=== PATIENT | male | born 1955 | race Two or more races ===

== ENCOUNTER 2021-01-13 02:23 | Inpatient (IN) | payer MEDICARE, OTHER ==
[~2021-01-13] VITALS: Ht 167.6 cm; Wt 66.3 kg
[2021-01-13] MEDS ORDERED: ETOMIDATE 20 MG/10 ML ONE (02:30)
[2021-01-13] MEDS ORDERED: SUCCINYLCHOLINE 20 MG/ML, 10ML ONE (02:30)
--- NOTE | 2021-01-13 02:30 | NUR ---
PT BIB [facility] TO [facility], AND PT WAS BEING PACED FOR BRADYCARDIA ENROUTE FROM PTS LOCATION, ON ARRIVAL, EMS NOTED THAT IT IS A FULL CODE NOW, THEY WALKED IN THE DOOR. CODE ACTIVATED, STAFF TO ROOM, PT RECEIVED, AND PLACED ON GURNEY. PT AIRWAY SECURED, AND BVM USED TO BAG PT UP. PT PLACED ON CR MONITOR, AND REPORT RECEIVED FROM EMS. PER EMS PT RECEIVED 2MG VERSED AND 4MG ZOFRAN PRIOR TO DEPARTURE PT WAS ANXIOUS AND NAUSEATED. 0234 2ND PIV 18G TO RIGHT UPPER ARM STARTED AND BLOOD DRAWN AND SENT TO LAB. 0235 RSI BEGUN. 100 MG SUCC AND 20MG ETOMIDATE GIVEN AND FLUSHED. PT REACHED SEDATION. PT HAD BEEN MOANING ON OCCASION AND ALSO COUGHING RANDOMLY, HAD INCOMPREHENSIBLE WORDS. PT CONTINUES TO BE PACED AND SWITCHED TO ER MONITOR AND PACER, AT 60 mA AND A RATE OF 80, POSITIVE BODY TWITCHING NOTED ON SYNCRONIZED PACING. 0237, PT INTUBATED WITH AN 8.0 CUFFED TUBE X1 ATTEMPT AND TUBE SECURED AND TAPED 25CM AT THE TEETH, CUFF INFLATED AND AIRWAY SECURED, AND POSITIVE ETCO2 COLOR CHANGE, AND PT PLACED ON VENTILATOR BY RT. 0242, PARTS REPRESENTATIVE PERSONNEL WALKING OUT OF ER STOPPED, AND MD EVALUATED WITH ER MD, AND DECISION TO GO TO PARTS REPRESENTATIVE WAS MADE. AT THIS TIME, MD ORDERED 1MG ATROPINE IVP. FLUSHED EASILY. 0244, DOPAMINE GTT PREPARED BY INTERMEDIATE PROJECT MANAGER AND STARTED AT 5MCG/KG/MIN. 0246, PORTABLE CXRY DONE PT BEING PREPARED FOR TRANSPORT TO [facility]S REPRESENTATIVE. 0247 PT TRANSFERRED TO PARTS REPRESENTATIVE STAT, AND REPORT AND CARE GIVEN TO PARTS REPRESENTATIVE MASTER CHEF.
[2021-01-13] MEDS ORDERED: LIDOCAINE 1%, 20ML ONE (02:44)
[2021-01-13] MEDS ORDERED: MIDAZOLAM 1 MG/ML, 5ML ONE ×2 (02:51→11:36)
[2021-01-13 02:58] LABS: NEUTROPHILS % (AUTO) 60 % (42-75)
[2021-01-13 03:03] LABS: BASOPHILS % (AUTO) 0 % (0-1); EOSINOPHILS % (AUTO) 1 % (1-7); LYMPHOCYTES % (AUTO) 33 % (22-44); MEAN CORPUSCULAR HEMOGLOBIN 33.4 pg (27.5-34.5); MEAN CORPUSCULAR HGB CONC 34.8 g/dL (33.2-36.2); MEAN PLATELET VOLUME 9.6 fL (7.4-10.4); MONOCYTES % (AUTO) 6 % (2-9); PLATELET COUNT 285 x10^3/uL (130-400); RED BLOOD COUNT 4.32 x10^6/uL (4.38-5.82); RED CELL DISTRIBUTION WIDTH 12.5 % (9.4-14.8)
[2021-01-13 03:09] LABS: ALANINE AMINOTRANSFERASE 116 U/L (12-78); ALBUMIN 3.1 g/dL (3.4-5.0); ANION GAP 12 mmol/L (5-15); CALCIUM 8.2 mg/dL (8.5-10.1); CHLORIDE 104 mmol/L (98-107); CREATININE 1.25 mg/dL (0.7-1.3)
[2021-01-13 03:14] LABS: ALKALINE PHOSPHATASE 69 U/L (45-117); BILIRUBIN,TOTAL 0.7 mg/dL (0.2-1.0); TOTAL PROTEIN 6.3 g/dL (6.4-8.2); TROPONIN I 0.055 ng/mL (0.000-0.045)
[2021-01-13] MEDS ORDERED: VECURONIUM 10 MG ONE (03:27)
[2021-01-13] MEDS ORDERED: SUCCINYLCHOLINE 20 MG/ML, 10ML IVPush ONE (03:30)
[2021-01-13] MEDS ORDERED: ETOMIDATE 20 MG/10 ML IVPush ONE (03:30)
[2021-01-13] MEDS ORDERED: DOPAMINE/D5W PMX 400 MG/250 ML ONE (03:36)
[2021-01-13] MEDS ORDERED: ATROPINE SYRINGE 0.1 MG/ML, 10ML ONE (03:36)
[2021-01-13] MEDS ORDERED: PROPAFENONE 150 MG TABLET ONE (03:38)
[2021-01-13] MEDS ORDERED: PROPOFOL 100 ML IV ONE (03:39)
[2021-01-13 03:59] LABS: FREE T4 (FREE THYROXINE) 1.4 ng/dL (0.76-1.46)
[2021-01-13] MEDS ORDERED: CYCLOBENZAPRINE 10 MG TABLET PO PRN (04:30)
[2021-01-13] MEDS ORDERED: ACETAMINOPHEN 325 MG TABLET PO PRN (04:30)
[2021-01-13] MEDS ORDERED: SENNA/DOCUSATE TABLET NG PRN (04:30)
[2021-01-13] MEDS ORDERED: ZOLPIDEM 5MG TABLET PO PRN (04:30)
[2021-01-13] MEDS ORDERED: HYDROcodone/APAP 5/325 TABLET PO PRN (04:30)
[2021-01-13] MEDS ORDERED: FENTANYL PF 100 MCG/2ML IVPush PRN (04:30)
[2021-01-13] MEDS ORDERED: GUAIFENESIN/DM 200-20MG, 10ML UDC PO PRN (04:30)
[2021-01-13] MEDS ORDERED: LIDOCAINE-MPF 1%, 2ML ENDO PRN (04:30)
[2021-01-13] MEDS ORDERED: hydrALAzine 20 MG/ML, 1ML IVPush PRN (04:30)
[2021-01-13] MEDS ORDERED: LACTULOSE 20 GM/30 ML UDC NG PRN (04:30)
[2021-01-13] MEDS ORDERED: PROPOFOL 100 ML IV PRN (04:30)
[2021-01-13] MEDS ORDERED: morphine SULFATE 10 MG/ML, 1ML IVPush PRN (04:30)
[2021-01-13] MEDS ORDERED: BISACODYL 10 MG SUPP PR PRN (04:30)
[2021-01-13] MEDS ORDERED: SENNA 176 MG/5 ML ORAL SOL NG PRN (04:30)
[2021-01-13] MEDS ORDERED: PHARMACY MAY ADJ FOR RENAL FX MC SCH (04:30)
[2021-01-13] MEDS ORDERED: ONDANSETRON 2MG/ML, 2ML IVPush PRN (04:30)
[2021-01-13] MEDS ORDERED: LACTATED RINGERS 1,000 ML IV SCH (04:30)
[2021-01-13] MEDS ORDERED: ONDANSETRON 2MG/ML, 2ML IV PRN (04:30)
[2021-01-13] MEDS ORDERED: DOCUSATE 100 MG CAPSULE PO PRN (04:30)
[2021-01-13] MEDS: DOPAMINE/D5W PMX 250 ML IV PRN ×3 (05:08→18:09)
[2021-01-13 05:15] VITALS: BP 109/63
[2021-01-13] MEDS: INSULIN REGULAR 100 UNITS/ML, 3ML VIAL SQ-INSULIN SCH ×4 (05:46→21:00)
[2021-01-13] MEDS ORDERED: INSULIN GLARGINE 100 UNITS/ML, PEN SQ-INSULIN SCH ×2 (07:30→19:30)
[2021-01-13] MEDS: FAMOTIDINE 20 MG/2 ML IVPush SCH ×2 (07:46→21:01)
[2021-01-13] MEDS: SODIUM CHLORIDE FLUSH 10ML SYR IVF SCH ×2 (08:15→21:01)
[2021-01-13] MEDS ORDERED: SODIUM CHLORIDE 0.9%, 500ML IVBOLUS ONE (10:00)
[2021-01-13] MEDS ORDERED: TICAGRELOR 90 MG TABLET ONE (11:36)
[2021-01-13] MEDS ORDERED: FENTANYL PF 100 MCG/2ML ONE (11:36)
[2021-01-13] MEDS ORDERED: LIDOCAINE 2%, 20ML ONE (11:37)
[2021-01-13] MEDS ORDERED: BIVALIRUDIN 250 MG ONE (11:37)
[2021-01-13] MEDS ORDERED: HEPARIN 1,000 UNITS/ML, 10ML ONE ×2 (11:37→11:48)
[2021-01-13] MEDS ORDERED: VERAPAMIL 2.5 MG/ML, 2ML ONE (11:37)
[2021-01-13] MEDS ORDERED: CLOPIDOGREL 300 MG TABLET ONE (13:06)
[2021-01-13] MEDS: SODIUM CHLORIDE 0.9% 2,000 ML IV SCH (14:04)
[2021-01-13] MEDS: ATORVASTATIN 40 MG TABLET PO SCH (21:01)
[2021-01-13] MEDS ORDERED: TRAZODONE 50MG TABLET PO ONE (21:30)
[2021-01-13] MEDS ORDERED: PLEASE ENTER ALLERGIES MC SCH (22:00)
[2021-01-14] MEDS: INSULIN REGULAR 100 UNITS/ML, 3ML VIAL SQ-INSULIN SCH ×4 (03:27→20:07)
[2021-01-14] MEDS ORDERED: PHENYLEPHRINE 10 MG/ML ONE (04:16)
[2021-01-14 04:31] LABS: BASOPHILS % (AUTO) 0 % (0-1); EOSINOPHILS % (AUTO) 0 % (1-7); LYMPHOCYTES % (AUTO) 10 % (22-44); MEAN CORPUSCULAR HEMOGLOBIN 33.3 pg (27.5-34.5); MEAN CORPUSCULAR HGB CONC 35.2 g/dL (33.2-36.2); MEAN PLATELET VOLUME 8.9 fL (7.4-10.4); MONOCYTES % (AUTO) 8 % (2-9); NEUTROPHILS % (AUTO) 81 % (42-75); PLATELET COUNT 200 x10^3/uL (130-400); RED CELL DISTRIBUTION WIDTH 12.5 % (9.4-14.8)
[2021-01-14 04:39] LABS: ANION GAP 6 mmol/L (5-15); CALCIUM 8.3 mg/dL (8.5-10.1); CHLORIDE 111 mmol/L (98-107); CHOLESTEROL, TOTAL 124 mg/dL (140-239); CREATININE 0.64 mg/dL (0.7-1.3)
[2021-01-14 05:03] LABS: CHOL/HDL RATIO 3.9; HDL CHOL % 26 % (26-37); HDL CHOLESTEROL (DIRECT) 32 mg/dL (40-60); LDL CHOLESTEROL,CALCULATED 71 mg/dL (54-169); LDL/HDL RATIO 2.2 (0.5-3.0); TRIGLYCERIDES 104 mg/dL (50-200); VLDL CHOLESTEROL 21 mg/dL (0-25)
[2021-01-14] MEDS: SODIUM CHLORIDE 0.9% 2,000 ML IV SCH (05:57)
[2021-01-14] MEDS ORDERED: POTASSIUM CHLORIDE 20 MEQ TAB.ER.PRT PO ONE (07:00)
[2021-01-14] MEDS: CLOPIDOGREL 75 MG TABLET PO SCH (07:48)
[2021-01-14] MEDS: FAMOTIDINE 20 MG/2 ML IVPush SCH ×2 (07:48→20:06)
[2021-01-14] MEDS: SODIUM CHLORIDE FLUSH 10ML SYR IVF SCH ×2 (07:49→20:06)
[2021-01-14] MEDS: ASPIRIN 81 MG TABLET CHEW PO SCH (07:49)
[2021-01-14] MEDS: INSULIN GLARGINE 100 UNITS/ML, PEN SQ-INSULIN SCH ×2 (07:53→20:04)
[2021-01-14] MEDS: DOPAMINE/D5W PMX 250 ML IV PRN (12:03)
[2021-01-14] MEDS ORDERED: SODIUM CHLORIDE 0.9%, 500ML IVBOLUS ONE (13:30)
[2021-01-14] MEDS: ATORVASTATIN 40 MG TABLET PO SCH (20:06)
[2021-01-15] MEDS: INSULIN REGULAR 100 UNITS/ML, 3ML VIAL SQ-INSULIN SCH ×3 (03:29→15:00)
[2021-01-15 04:14] LABS: BASOPHILS % (AUTO) 1 % (0-1); EOSINOPHILS % (AUTO) 1 % (1-7); LYMPHOCYTES % (AUTO) 17 % (22-44); MEAN CORPUSCULAR HGB CONC 34.4 g/dL (33.2-36.2); MEAN PLATELET VOLUME 9.2 fL (7.4-10.4); MONOCYTES % (AUTO) 8 % (2-9); NEUTROPHILS % (AUTO) 74 % (42-75); PLATELET COUNT 190 x10^3/uL (130-400); RED BLOOD COUNT 3.67 x10^6/uL (4.38-5.82); RED CELL DISTRIBUTION WIDTH 12.3 % (9.4-14.8)
[2021-01-15 04:22] LABS: ANION GAP 6 mmol/L (5-15); CALCIUM 8.5 mg/dL (8.5-10.1); CHLORIDE 109 mmol/L (98-107); CREATININE 0.58 mg/dL (0.7-1.3)
[2021-01-15] MEDS: ASPIRIN 81 MG TABLET CHEW PO SCH (07:56)
[2021-01-15] MEDS: CLOPIDOGREL 75 MG TABLET PO SCH (07:56)
[2021-01-15] MEDS: INSULIN GLARGINE 100 UNITS/ML, PEN SQ-INSULIN SCH (07:57)
[2021-01-15] MEDS: SODIUM CHLORIDE FLUSH 10ML SYR IVF SCH (07:57)
[2021-01-15] MEDS: MIDODRINE 5 MG TABLET PO SCH ×2 (10:55→15:40)
[2021-01-15] MEDS: DOPAMINE/D5W PMX 250 ML IV PRN (11:28)
[2021-01-18] MEDS ORDERED: INSU100I11 SQ-INSULIN (15:52)
[2021-01-18] MEDS ORDERED: ASPI-963 PO (15:52)
[2021-01-18] MEDS ORDERED: INSU100I13 SQ-INSULIN (15:52)
[2021-01-18] MEDS ORDERED: ATOR40TA78 PO (15:52)
[2021-01-18] MEDS ORDERED: CLOP75TA PO (15:52)
[2021-01-18] MEDS ORDERED: GLUCOMETER (16:49)
[2021-01-18] MEDS ORDERED: [UNRECOGNIZED DRUG - SUPPLY] (16:49)
[2021-01-18] MEDS ORDERED: GLUCOSE TEST STRIPS (16:49)
[2021-01-18] MEDS ORDERED: INSULIN PEN NEEDLES (16:49)
[2021-01-18] MEDS ORDERED: LANCETS (16:49)
== END 2021-01-15 16:00 | disposition left against medical advice (07) | DRG 246 ==
LOC: EDBD 02:23 → ED 02:35 → EDIP 03:00 → CCU 03:21
PROVIDERS: ADMIT Internal Medicine; ATTEND Internal Medicine
PROC: 027034Z Dilation of Coronary Artery, One Artery with Drug-eluting Intraluminal Device, Percutaneous Approach (ICD-10-PCS; principal; 2021-01-13)
PROC: 4A023N7 Measurement of Cardiac Sampling and Pressure, Left Heart, Percutaneous Approach (ICD-10-PCS; 2021-01-13)
PROC: B2111ZZ Fluoroscopy of Multiple Coronary Arteries using Low Osmolar Contrast (ICD-10-PCS; 2021-01-13)
PROC: 5A2204Z Restoration of Cardiac Rhythm, Single (ICD-10-PCS; 2021-01-13)
PROC: 5A1935Z Respiratory Ventilation, Less than 24 Consecutive Hours (ICD-10-PCS; 2021-01-13)
PROC: 0BH17EZ Insertion of Endotracheal Airway into Trachea, Via Natural or Artificial Opening (ICD-10-PCS; 2021-01-13)
DX: I21.19 ST elevation (STEMI) myocardial infarction involving other coronary artery of inferior wall (principal); J96.01 Acute respiratory failure with hypoxia; I63.9 Cerebral infarction, unspecified; R57.0 Cardiogenic shock; I44.2 Atrioventricular block, complete; G93.40 Encephalopathy, unspecified; E11.65 Type 2 diabetes mellitus with hyperglycemia; F17.210 Nicotine dependence, cigarettes, uncomplicated; R29.702 NIHSS score 2; R00.1 Bradycardia, unspecified; D72.829 Elevated white blood cell count, unspecified; R74.01 Elevation of levels of liver transaminase levels; I25.10 Atherosclerotic heart disease of native coronary artery without angina pectoris; Z53.29 Procedure and treatment not carried out because of patient's decision for other reasons; Z79.899 Other long term (current) drug therapy
CPT/HCPCS: 31500; 33210; 36600; 92953; 92973; 96374; 99291; J3490; 70450; 71045; 72125; 80047; 80048; 80053; 80061; 82533; 82803; 82962; 83036; 83690; 83735; 84100; 84439; 84443; 84478; 84484; 85025; 85347; 87070; 87077; 87081; 87186; 87205; 92950; 93005; 93306; 93356; 94002; 94003; 99156; 99157; C1769; C1894; G0378; J0461; J0583; J1265; J1644; J1815; J2250; J2704; J3010; 92523-GN; C1725; C1757; C1874; J0330; J2370; J7030; J7040; J7120; Q9967

== ENCOUNTER 2021-03-18 11:22 | Outpatient (CLI) | payer MEDICARE ==
[~2021-03-18 11:22] MED LIST: ASPI-963 PO; ATOR40TA78 PO; CLOP75TA PO; GLUCOMETER; GLUCOSE TEST STRIPS; INSU100I11 SQ-INSULIN; INSU100I13 SQ-INSULIN; INSULIN PEN NEEDLES; LANCETS; [UNRECOGNIZED DRUG - SUPPLY]
== END 2021-03-18 23:59 | disposition home or self-care (01) ==
LOC: STAR 11:22
PROVIDERS: ATTEND Thoracic Surgery (Cardiothoracic Vascular Surgery)
DX: Z20.822 Contact with and (suspected) exposure to COVID-19 (principal)
CPT/HCPCS: U0003; U0005

== ENCOUNTER 2021-03-20 07:30 | Inpatient (IN) | payer MEDICARE ==
[~2021-03-20] VITALS: Ht 167.6 cm; Wt 70.2 kg
[2021-03-21] MEDS ORDERED: GLIP5TAB10 PO (12:58)
[2021-03-21] MEDS ORDERED: METF500T17 PO (12:58)
[2021-03-21] MEDS ORDERED: ATOR40TA78 PO (12:58)
[2021-03-21] MEDS ORDERED: CLOP75TA PO (12:58)
[2021-03-21 13:29] LABS: MICROSCOPIC NOT IND
[2021-03-21 13:33] LABS: BASOPHILS % (AUTO) 1 % (0-1); EOSINOPHILS % (AUTO) 2 % (1-7); LYMPHOCYTES % (AUTO) 25 % (22-44); MEAN CORPUSCULAR HEMOGLOBIN 33.2 pg (27.5-34.5); MEAN CORPUSCULAR HGB CONC 34.7 g/dL (33.2-36.2); MEAN PLATELET VOLUME 8.4 fL (7.4-10.4); MONOCYTES % (AUTO) 8 % (2-9); NEUTROPHILS % (AUTO) 66 % (42-75); PLATELET COUNT 294 x10^3/uL (130-400); RED BLOOD COUNT 4.79 x10^6/uL (4.38-5.82); RED CELL DISTRIBUTION WIDTH 12.9 % (9.4-14.8)
[2021-03-21 13:46] LABS: ALBUMIN 4.1 g/dL (3.4-5.0); ANION GAP 7 mmol/L (5-15); CHLORIDE 100 mmol/L (98-107)
[2021-03-21 13:48] LABS: INTERNATIONAL NORMALIZED RATIO 1.01 (0.93-1.1); PROTHROMBIN TIME 10.8 Seconds (9.6-11.5)
[2021-03-21 13:49] LABS: ALANINE AMINOTRANSFERASE 34 U/L (12-78); ALKALINE PHOSPHATASE 68 U/L (45-117); BILIRUBIN,TOTAL 0.8 mg/dL (0.2-1.0); CREATININE 0.88 mg/dL (0.7-1.3)
[2021-03-22 04:32] VITALS: BP_SYST 110; BP_SYST 112; BP_DIAS 68; BP_DIAS 74
[2021-03-22] MEDS ORDERED: DO NOT GIVE XX SCH (05:00)
[2021-03-22] MEDS ORDERED: DO NOT GIVE MC SCH (05:00)
[2021-03-22] MEDS ORDERED: INSULIN LISPRO 100 UNITS/ML, PEN SQ-INSULIN SCH (05:00)
[2021-03-22] MEDS ORDERED: CHLORHEXIDINE 15 ML UDC MM SCH (05:00)
[2021-03-22] MEDS ORDERED: METOPROLOL TARTRATE 25 MG TAB PO ONE (05:00)
[2021-03-22] MEDS: MUPIROCIN OINT 2%, 15GM TP SCH ×2 (05:11→17:39)
[2021-03-22] MEDS ORDERED: HEPARIN 1,000 UNITS/ML, 10ML ONE (06:37)
[2021-03-22] MEDS ORDERED: PAPAVERINE 30 MG/ML, 2ML ONE (06:37)
[2021-03-22] MEDS ORDERED: FENTANYL PF 250 MCG/5ML ONE ×4 (06:48→06:49)
[2021-03-22] MEDS ORDERED: MIDAZOLAM 10MG/2 ML ONE (06:48)
[2021-03-22] MEDS ORDERED: AMINOCAPROIC ACID 250 MG/ML, 20ML ONE ×2 (06:49)
[2021-03-22] MEDS ORDERED: ROCURONIUM 10MG/ML,5ML ONE ×3 (06:49→12:23)
[2021-03-22] MEDS ORDERED: EPINEPHRINE 1 MG/ML, 1ML ONE (06:50)
[2021-03-22] MEDS ORDERED: PHENYLEPHRINE 10 MG/ML ONE (06:50)
[2021-03-22] MEDS ORDERED: PROPOFOL 10 MG/ML, 20ML ONE (06:50)
[2021-03-22] MEDS ORDERED: ALBUMIN HUMAN 5% 500 ML ONE (06:54)
[2021-03-22] MEDS ORDERED: EPINEPHRINE 5 MG in SODIUM CHLORIDE 0.9% 245 ML IV PRN ×2 (07:30→11:00)
[2021-03-22] MEDS ORDERED: PHENYLEPHRINE 50 MG in SODIUM CHLORIDE 0.9% 245 ML IV PRN (07:30)
[2021-03-22] MEDS ORDERED: ALBUMIN HUMAN 5% 500 ML IV PRN ×2 (07:30→11:00)
[2021-03-22] MEDS ORDERED: DEXMEDETOMIDINE 200 MCG in SODIUM CHLORIDE 0.9% 48 ML IV PRN (07:30)
[2021-03-22] MEDS ORDERED: POTASSIUM CHLORIDE 80 MEQ, SODIUM BICARBONATE 8.4% 10 MEQ, MAGNESIUM SULFATE 0.5 GM, LI... IV PRN (07:30)
[2021-03-22] MEDS ORDERED: CEFUROXIME 1.5 GM in SODIUM CHLORIDE 0.9% 50 ML IVPB PRN (07:30)
[2021-03-22] MEDS ORDERED: MANNITOL PMX 20% 500 ML IVPB PRN (07:30)
[2021-03-22] MEDS ORDERED: REGULAR INSULIN 100 UNITS in SODIUM CHLORIDE 0.9% 99 ML IV PRN ×2 (07:30→11:00)
[2021-03-22] MEDS ORDERED: VANCOMYCIN 1,000 MG in SODIUM CHLORIDE 0.9% 100 ML IV PRN (07:30)
[2021-03-22] MEDS ORDERED: PROTAMINE SULFATE 10 MG/ML, 25ML ONE (08:57)
[2021-03-22] MEDS: SODIUM CHLORIDE FLUSH 10ML SYR IVF SCH ×3 (09:00→19:49)
[2021-03-22] MEDS ORDERED: SODIUM BICARB 8.4%, 50ML SYRINGE ONE ×3 (10:26→11:26)
[2021-03-22] MEDS ORDERED: VASOPRESSIN 20 UNIT/ML, 1ML ONE (10:58)
[2021-03-22] MEDS ORDERED: NITROGLYCERIN/D5W PMX 250 ML IV PRN (11:00)
[2021-03-22] MEDS ORDERED: GLUCAGON 1 MG IM PRN (11:00)
[2021-03-22] MEDS ORDERED: ONDANSETRON 2MG/ML, 2ML IVPush PRN (11:00)
[2021-03-22] MEDS: KSCALE TO 4.5 IV SCH ×3 (11:00→23:31)
[2021-03-22] MEDS ORDERED: FENTANYL PF 100 MCG/2ML IV PRN (11:00)
[2021-03-22] MEDS: ACETAMINOPHEN 500 MG TABLET PO SCH ×3 (11:00→22:30)
[2021-03-22] MEDS ORDERED: CALCIUM CHLORIDE 13.6 MEQ in SODIUM CHLORIDE 0.9% 100 ML IVPB PRN (11:00)
[2021-03-22] MEDS ORDERED: DEXTROSE 4 GM TAB.CHEW PO PRN (11:00)
[2021-03-22] MEDS ORDERED: PROMETHAZINE 25 MG SUPP PR PRN (11:00)
[2021-03-22] MEDS ORDERED: INSULIN REGULAR 100 UNITS/ML, 3ML VIAL IVPush PRN (11:00)
[2021-03-22] MEDS ORDERED: DEXMEDETOMIDINE 400 MCG in SODIUM CHLORIDE 0.9% 96 ML IV PRN (11:00)
[2021-03-22] MEDS ORDERED: PROCHLORPERAZINE 5 MG/ML, 2ML IVPush PRN (11:00)
[2021-03-22] MEDS ORDERED: MIDAZOLAM 1 MG/ML, 2ML IV PRN (11:00)
[2021-03-22] MEDS ORDERED: SODIUM BICARB 8.4%, 50ML SYRINGE IV PRN (11:00)
[2021-03-22] MEDS ORDERED: morphine SULFATE 10 MG/ML, 1ML IVPush PRN (11:00)
[2021-03-22] MEDS ORDERED: DEXTROSE 50%, 50ML SYRINGE IVPush PRN (11:00)
[2021-03-22] MEDS ORDERED: SODIUM CHLORIDE 0.9% 1,000 ML IV SCH (11:00)
[2021-03-22] MEDS ORDERED: ALBUMIN HUMAN 25% 50 ML ONE (11:26)
[2021-03-22] MEDS ORDERED: CALCIUM CHLORIDE 10%, 10ML SYR ONE ×2 (11:26→12:22)
[2021-03-22] MEDS ORDERED: MAGNESIUM SULFATE PMX 2GM/50ML 50 ML ONE (11:26)
[2021-03-22] MEDS ORDERED: FUROSEMIDE 20 MG/2 ML ONE (11:26)
[2021-03-22] MEDS ORDERED: HEPARIN 1,000 UNITS/ML, 30ML ONE (11:26)
[2021-03-22] MEDS ORDERED: FENTANYL PF 100 MCG/2ML ONE (11:50)
[2021-03-22 11:56] LABS: GLUCOSE BY BLOOD GAS ANALYZER 155 mg/dL (70-110); HEMOGLOBIN BY BLOOD GAS ANALYZ 10.8 g/dL (14.0-18.0); POTASSIUM BY BLOOD GAS ANALYZR 4.2 mmol/L (3.6-5.5)
[2021-03-22] MEDS: MAGNESIUM SULFATE 1 GM in SODIUM CHLORIDE 0.9% 100 ML IVPB SCH (12:00)
[2021-03-22] MEDS: INSULIN LISPRO 100 UNITS/ML, PEN SQ-INSULIN SCH ×3 (13:00→19:49)
[2021-03-22] MEDS: LACTATED RINGERS 500 ML IV PRN ×4 (13:40→23:30)
[2021-03-22] MEDS: OXYcodone IR 5MG TABLET PO PRN ×2 (19:30→20:44)
[2021-03-22] MEDS: ATORVASTATIN 40 MG TABLET PO SCH (19:51)
[2021-03-22] MEDS: CEFUROXIME 1.5 GM in SODIUM CHLORIDE 0.9% 50 ML IVPB SCH (20:43)
[2021-03-22] MEDS ORDERED: DIPHENHYDRAMINE 25 MG CAPSULE PO PRN (21:00)
[2021-03-23] MEDS: INSULIN LISPRO 100 UNITS/ML, PEN SQ-INSULIN SCH ×6 (00:30→21:00)
[2021-03-23] MEDS: OXYcodone IR 5MG TABLET PO PRN ×4 (01:19→23:06)
[2021-03-23 04:23] LABS: BASOPHILS % (AUTO) 0 % (0-1); EOSINOPHILS % (AUTO) 0 % (1-7); LYMPHOCYTES % (AUTO) 15 % (22-44); MEAN CORPUSCULAR HEMOGLOBIN 32.8 pg (27.5-34.5); MEAN CORPUSCULAR HGB CONC 34.5 g/dL (33.2-36.2); MEAN PLATELET VOLUME 8.6 fL (7.4-10.4); MONOCYTES % (AUTO) 8 % (2-9); NEUTROPHILS % (AUTO) 77 % (42-75); PLATELET COUNT 144 x10^3/uL (130-400); RED BLOOD COUNT 2.74 x10^6/uL (4.38-5.82)
[2021-03-23 04:33] LABS: ANION GAP 5 mmol/L (5-15); CALCIUM 7.9 mg/dL (8.5-10.1); CHLORIDE 111 mmol/L (98-107); CREATININE 0.75 mg/dL (0.7-1.3)
[2021-03-23] MEDS: KSCALE TO 4.5 IV SCH (04:38)
[2021-03-23] MEDS: MUPIROCIN OINT 2%, 15GM TP SCH ×2 (04:38→17:39)
[2021-03-23] MEDS: ACETAMINOPHEN 500 MG TABLET PO SCH ×4 (04:49→22:57)
[2021-03-23] MEDS: MUPIROCIN OINT 2%, 15GM NAS SCH ×2 (05:59→17:39)
[2021-03-23] MEDS: metFORMIN 500 MG TABLET PO SCH ×2 (08:21→21:00)
[2021-03-23] MEDS: CLOPIDOGREL 75 MG TABLET PO SCH (08:21)
[2021-03-23] MEDS: OMEPRAZOLE 20 MG CAPSULE.DR PO SCH (08:21)
[2021-03-23] MEDS: ASPIRIN 81 MG TABLET EC PO SCH (08:21)
[2021-03-23] MEDS: CHLORHEXIDINE 15 ML UDC MM SCH ×2 (08:23→20:53)
[2021-03-23] MEDS: SODIUM CHLORIDE FLUSH 10ML SYR IVF SCH ×2 (08:23→20:53)
[2021-03-23] MEDS: CEFUROXIME 1.5 GM in SODIUM CHLORIDE 0.9% 50 ML IVPB SCH (08:24)
[2021-03-23] MEDS ORDERED: FUROSEMIDE 20 MG/2 ML IV SCH (09:00)
[2021-03-23] MEDS: MAGNESIUM SULFATE 1 GM in SODIUM CHLORIDE 0.9% 100 ML IVPB SCH (10:40)
[2021-03-23] MEDS: POLYETHYLENE GLYCOL 17 GM PACKET PO SCH (12:21)
[2021-03-23] MEDS: DOCUSATE 100 MG CAPSULE PO SCH ×2 (12:21→21:01)
[2021-03-23] MEDS: SENNA/DOCUSATE TABLET PO SCH ×2 (12:22→20:55)
[2021-03-23 15:32] VITALS: BP 117/70
[2021-03-23 20:45] VITALS: BP 92/67
[2021-03-23] MEDS: ATORVASTATIN 40 MG TABLET PO SCH (20:53)
[2021-03-23] MEDS: METOPROLOL TARTRATE 25 MG TAB PO/NG SCH (20:54)
[2021-03-24 04:09] VITALS: BP 103/65
[2021-03-24] MEDS: ACETAMINOPHEN 500 MG TABLET PO SCH ×4 (04:31→23:18)
[2021-03-24] MEDS: METOPROLOL TARTRATE 25 MG TAB PO/NG SCH ×3 (04:54→20:59)
[2021-03-24] MEDS: MUPIROCIN OINT 2%, 15GM NAS SCH ×2 (04:55→17:07)
[2021-03-24 05:12] LABS: ANION GAP 4 mmol/L (5-15); CALCIUM 7.9 mg/dL (8.5-10.1); CHLORIDE 105 mmol/L (98-107); CREATININE 0.59 mg/dL (0.7-1.3)
[2021-03-24 05:15] LABS: BASOPHILS % (AUTO) 0 % (0-1); EOSINOPHILS % (AUTO) 1 % (1-7); LYMPHOCYTES % (AUTO) 10 % (22-44); MEAN CORPUSCULAR HEMOGLOBIN 32.5 pg (27.5-34.5); MEAN CORPUSCULAR HGB CONC 33.8 g/dL (33.2-36.2); MEAN PLATELET VOLUME 9.1 fL (7.4-10.4); MONOCYTES % (AUTO) 11 % (2-9); NEUTROPHILS % (AUTO) 78 % (42-75); PLATELET COUNT 131 x10^3/uL (130-400); RED BLOOD COUNT 2.79 x10^6/uL (4.38-5.82); RED CELL DISTRIBUTION WIDTH 13.1 % (9.4-14.8)
[2021-03-24 07:07] VITALS: BP 103/64
[2021-03-24] MEDS: POTASSIUM CHLORIDE 20 MEQ TAB.ER.PRT PO SCH (08:13)
[2021-03-24] MEDS: OMEPRAZOLE 20 MG CAPSULE.DR PO SCH (08:13)
[2021-03-24] MEDS: BUSPIRONE 10 MG TABLET PO SCH ×2 (08:13→20:59)
[2021-03-24] MEDS: SENNA/DOCUSATE TABLET PO SCH ×2 (08:13→20:59)
[2021-03-24] MEDS: metFORMIN 500 MG TABLET PO SCH ×2 (08:13→20:59)
[2021-03-24] MEDS: POLYETHYLENE GLYCOL 17 GM PACKET PO SCH (08:13)
[2021-03-24] MEDS: CLOPIDOGREL 75 MG TABLET PO SCH (08:13)
[2021-03-24] MEDS: DOCUSATE 100 MG CAPSULE PO SCH ×2 (08:14→21:00)
[2021-03-24] MEDS: ASPIRIN 81 MG TABLET EC PO SCH (08:14)
[2021-03-24] MEDS: SODIUM CHLORIDE FLUSH 10ML SYR IVF SCH ×2 (08:14→21:00)
[2021-03-24] MEDS: FUROSEMIDE 20 MG/2 ML IV SCH (08:15)
[2021-03-24] MEDS: CHLORHEXIDINE 15 ML UDC MM SCH ×2 (08:15→21:00)
[2021-03-24] MEDS: ENOXAPARIN 40 MG/0.4 ML SQ SCH (08:15)
[2021-03-24] MEDS: INSULIN LISPRO 100 UNITS/ML, PEN SQ-INSULIN SCH ×4 (08:19→21:00)
[2021-03-24] MEDS ORDERED: BISACODYL 10 MG SUPP PR PRN (11:00)
[2021-03-24] MEDS: MAGNESIUM SULFATE 1 GM in SODIUM CHLORIDE 0.9% 100 ML IVPB SCH (12:22)
[2021-03-24 14:07] VITALS: BP 99/62
[2021-03-24 19:26] VITALS: BP 111/75
[2021-03-24] MEDS: ATORVASTATIN 40 MG TABLET PO SCH (20:59)
[2021-03-25 00:30] VITALS: BP 115/74
[2021-03-25 02:20] LABS: BASOPHILS % (AUTO) 1 % (0-1); EOSINOPHILS % (AUTO) 1 % (1-7); LYMPHOCYTES % (AUTO) 12 % (22-44); MEAN CORPUSCULAR HEMOGLOBIN 32.8 pg (27.5-34.5); MEAN CORPUSCULAR HGB CONC 34.6 g/dL (33.2-36.2); MEAN PLATELET VOLUME 9.1 fL (7.4-10.4); MONOCYTES % (AUTO) 8 % (2-9); NEUTROPHILS % (AUTO) 79 % (42-75); PLATELET COUNT 147 x10^3/uL (130-400); RED BLOOD COUNT 2.79 x10^6/uL (4.38-5.82); RED CELL DISTRIBUTION WIDTH 12.6 % (9.4-14.8)
[2021-03-25 02:40] LABS: ANION GAP 5 mmol/L (5-15); CHLORIDE 105 mmol/L (98-107); CREATININE 0.53 mg/dL (0.7-1.3)
[2021-03-25] MEDS: ACETAMINOPHEN 500 MG TABLET PO SCH ×4 (06:19→22:53)
[2021-03-25] MEDS: MUPIROCIN OINT 2%, 15GM NAS SCH ×2 (06:20→17:10)
[2021-03-25 06:42] VITALS: BP 115/76
[2021-03-25] MEDS: INSULIN LISPRO 100 UNITS/ML, PEN SQ-INSULIN SCH ×4 (08:32→20:58)
[2021-03-25] MEDS: POLYETHYLENE GLYCOL 17 GM PACKET PO SCH (08:32)
[2021-03-25] MEDS: POTASSIUM CHLORIDE 20 MEQ TAB.ER.PRT PO SCH (08:32)
[2021-03-25] MEDS: metFORMIN 500 MG TABLET PO SCH ×2 (08:32→20:49)
[2021-03-25] MEDS: BUSPIRONE 10 MG TABLET PO SCH ×2 (08:33→20:49)
[2021-03-25] MEDS: ENOXAPARIN 40 MG/0.4 ML SQ SCH (08:33)
[2021-03-25] MEDS: DOCUSATE 100 MG CAPSULE PO SCH (08:33)
[2021-03-25] MEDS: OMEPRAZOLE 20 MG CAPSULE.DR PO SCH (08:33)
[2021-03-25] MEDS: ASPIRIN 81 MG TABLET EC PO SCH (08:33)
[2021-03-25] MEDS: FUROSEMIDE 20 MG/2 ML IV SCH (08:33)
[2021-03-25] MEDS: SENNA/DOCUSATE TABLET PO SCH (08:33)
[2021-03-25] MEDS: CLOPIDOGREL 75 MG TABLET PO SCH (08:33)
[2021-03-25] MEDS: SODIUM CHLORIDE FLUSH 10ML SYR IVF SCH ×2 (08:34→20:49)
[2021-03-25] MEDS: METOPROLOL TARTRATE 25 MG TAB PO/NG SCH ×2 (08:34→20:49)
[2021-03-25] MEDS ORDERED: LOPERAMIDE 2 MG CAPSULE PO PRN (12:30)
[2021-03-25 14:30] VITALS: BP 100/64
[2021-03-25 19:08] VITALS: BP 102/52
[2021-03-25 20:47] VITALS: BP 106/67
[2021-03-25] MEDS: ATORVASTATIN 40 MG TABLET PO SCH (20:49)
[2021-03-26 01:59] VITALS: BP 99/61
[2021-03-26] MEDS: ACETAMINOPHEN 500 MG TABLET PO SCH ×2 (05:05→12:40)
[2021-03-26] MEDS: MUPIROCIN OINT 2%, 15GM NAS SCH (05:06)
[2021-03-26 08:20] LABS: BASOPHILS % (AUTO) 1 % (0-1); EOSINOPHILS % (AUTO) 2 % (1-7); LYMPHOCYTES % (AUTO) 16 % (22-44); MEAN CORPUSCULAR HEMOGLOBIN 32.6 pg (27.5-34.5); MEAN CORPUSCULAR HGB CONC 34.5 g/dL (33.2-36.2); MEAN PLATELET VOLUME 8.3 fL (7.4-10.4); MONOCYTES % (AUTO) 10 % (2-9); NEUTROPHILS % (AUTO) 72 % (42-75); PLATELET COUNT 219 x10^3/uL (130-400); RED BLOOD COUNT 2.89 x10^6/uL (4.38-5.82); RED CELL DISTRIBUTION WIDTH 12.8 % (9.4-14.8)
[2021-03-26 08:31] LABS: ANION GAP 5 mmol/L (5-15); CALCIUM 8.5 mg/dL (8.5-10.1); CHLORIDE 106 mmol/L (98-107); CREATININE 0.63 mg/dL (0.7-1.3)
[2021-03-26] MEDS: INSULIN LISPRO 100 UNITS/ML, PEN SQ-INSULIN SCH ×2 (08:36→12:40)
[2021-03-26] MEDS: OMEPRAZOLE 20 MG CAPSULE.DR PO SCH (08:37)
[2021-03-26] MEDS: POTASSIUM CHLORIDE 20 MEQ TAB.ER.PRT PO SCH (08:37)
[2021-03-26] MEDS: ASPIRIN 81 MG TABLET EC PO SCH (08:37)
[2021-03-26] MEDS: FUROSEMIDE 20 MG/2 ML IV SCH (08:37)
[2021-03-26] MEDS: BUSPIRONE 10 MG TABLET PO SCH (08:37)
[2021-03-26] MEDS: CLOPIDOGREL 75 MG TABLET PO SCH (08:37)
[2021-03-26] MEDS: metFORMIN 500 MG TABLET PO SCH (08:37)
[2021-03-26] MEDS: METOPROLOL TARTRATE 25 MG TAB PO/NG SCH (08:37)
[2021-03-26] MEDS: ENOXAPARIN 40 MG/0.4 ML SQ SCH (08:38)
[2021-03-26] MEDS: SODIUM CHLORIDE FLUSH 10ML SYR IVF SCH (08:39)
[2021-03-26 08:41] VITALS: BP 127/72
[2021-03-26] MEDS ORDERED: FURO-93 PO (10:48)
[2021-03-26] MEDS ORDERED: ASPI81TA45 PO (10:48)
[2021-03-26] MEDS ORDERED: METO25TA35 PO/NG (10:48)
[2021-03-26] MEDS ORDERED: TRAM50TA2 PO (10:48)
[2021-03-26] MEDS ORDERED: POTA-138 PO (10:48)
== END 2021-03-26 12:48 | disposition home health service (06) | DRG 236 ==
LOC: 5SO 03-22 04:18 → CSU 03-22 12:01 → 5SO 03-22 12:05 → CSU 03-22 12:11 → 5SO 03-23 15:24
PROVIDERS: ADMIT Thoracic Surgery (Cardiothoracic Vascular Surgery); ATTEND Thoracic Surgery (Cardiothoracic Vascular Surgery)
PROC: 06BQ4ZZ Excision of Left Saphenous Vein, Percutaneous Endoscopic Approach (ICD-10-PCS; 2021-03-22)
PROC: 02100Z9 Bypass Coronary Artery, One Artery from Left Internal Mammary, Open Approach (ICD-10-PCS; 2021-03-22)
PROC: 3E080GC Introduction of Other Therapeutic Substance into Heart, Open Approach (ICD-10-PCS; 2021-03-22)
PROC: 5A1221Z Performance of Cardiac Output, Continuous (ICD-10-PCS; 2021-03-22)
PROC: B24CZZ4 Ultrasonography of Pericardium, Transesophageal (ICD-10-PCS; 2021-03-22)
PROC: 021109W Bypass Coronary Artery, Two Arteries from Aorta with Autologous Venous Tissue, Open Approach (ICD-10-PCS; principal; 2021-03-22 07:30)
DX: I25.10 Atherosclerotic heart disease of native coronary artery without angina pectoris (principal); F17.203 Nicotine dependence unspecified, with withdrawal; I47.2 Ventricular tachycardia; J93.82 Other air leak; E11.9 Type 2 diabetes mellitus without complications; E78.5 Hyperlipidemia, unspecified; F41.9 Anxiety disorder, unspecified; Z79.899 Other long term (current) drug therapy
CPT/HCPCS: 36415; 36600; 71045; 71046; 80048; 80053; 81003; 82330; 82800; 82803; 82810; 82947; 82962; 83036; 83735; 84132; 84295; 85014; 85018; 85025; 85049; 85347; 85610; 85730; 86850; 86900; 86923; 87081; 93005; 93312; 93321; 93325; 94002; G0378; J0171; J0697; J1644; J1650; J1815; J2250; J2405; J2704; J2720; J3010; J3370; J3475; J3480; J7120; P9045; P9047; C1751; J1940; J2370; J2440; J7050